=== PATIENT | male | born 1935 | race Caucasian/White ===

== ENCOUNTER → 2018-01-03 10:53 | Outpatient (CLI) | payer MEDICARE, SELFPAY ==
[2018-01-03 12:09] LABS: Amphetamine Urine VISTA NEGATIVE (<1000 ng/mL); Barbiturate Urine VISTA NEGATIVE (< 200 ng/mL); Benzodiazepine Urine VISTA NEGATIVE (< 200 ng/mL); Cocaine Urine VISTA NEGATIVE (< 300 ng/mL); Ecstacy Urine VISTA NEGATIVE (< 500 ng/mL); Methadone Urine VISTA NEGATIVE (< 300 ng/mL); PCP Urine VISTA NEGATIVE (< 25 ng/mL); THC Urine VISTA NEGATIVE (< 50 ng/mL); Vista UDS pH Range 6
== END ==
PROVIDERS: Visit Provider Anesthesiology Pain Medicine
DX: F11.20 Opioid dependence, uncomplicated (principal)
CPT/HCPCS: 80307

== ENCOUNTER → 2018-04-05 08:43 | Outpatient (CLI) | payer MEDICARE, SELFPAY ==
[2018-04-05 08:30] VITALS: BMI 24.3
--- NOTE | 2018-04-05 08:45 | RAD_ITS ---
STUDY: X-RAY - LUMBOSACRAL SPINE REASON FOR EXAM: Male, 83 years old. Pain. TECHNIQUE: 6 view(s) of the lumbosacral spine were obtained. COMPARISON: None FINDINGS: There is straightening of the normal lumbar lordosis. There is a levoscoliosis with convexity at L3. There is normal alignment of the vertebrae. There is no change in alignment with flexion or extension. There is diffuse demineralization with multi-level endplate spondylosis. There is multi-level degenerative disc disease with multi-level disc space narrowing. There is no evidence of acute fracture or loss of vertebral axial height. There is diffuse degenerative facet disease. Normal bilateral sacral ala, sacroiliac joints, and visualized sacrum. Normal visualized soft tissue structures. RAD/L/S Spine Comp/w Bending Views IMPRESSION: Degenerative changes and scoliosis of the lumbar spine. Electronically Signed: Gab Alicea DO at 22:17 EST Tel [phone], Service support ,
--- OUTSIDE RECORDS SUMMARY | 2018-05-22 07:07 | XMS RPT_ITS ---
:1935 Author Organization OHIP Care Team Providers Name Role Phone Ayla Hawley Attending Unavailable DOCTOR, OUT OF TOWN Referring Unavailable Ayla Hawley Attending Unavailable Ayla Hawley Referring Unavailable GAUDENCIO LUQUE Primary Care Unavailable Marco A Paulino Attending Unavailable Marco A Paulino Referring Unavailable GAUDENCIO LUQUE Primary Care Unavailable Marco A Paulino Attending Unavailable Marco A Paulino Referring Unavailable GAUDENCIO LUQEU Primary Care Unavailable Ayla Hawley Attending Unavailable DOCTOR, OUT OF TOWN Referring Unavailable Joana HAYWARD Attending Unavailable Joana HAYWARD Referring Unavailable BASALI AYMAN Deepti Attending Unavailable BASALI AYMAN H Referring Unavailable BASALIDREAMAN H Attending Unavailable BASALI, AYMAN H Referring Unavailable HAWLEY, AYLA Attending Unavailable HAWLEY, AYLA Referring Unavailable BASALI, AYMAN H Attending Unavailable BASALI, AYMAN H Referring Unavailable BASALI, AYMAN H Attending Unavailable HAWLEY, AYLA Referring Unavailable BASALI, AYMAN H Attending Unavailable HAWLEY, AYLA Referring Unavailable ELVINPRATEEK Attending Unavailable BASALI, AYMAN H Attending Unavailable HAWLEY, AYLA Referring Unavailable BASALI, AYMAN H Attending Unavailable HAWLEY, AYLA Referring Unavailable HAWLEY, AYLA Attending Unavailable HAWLEY, AYLA Referring Unavailable HAWLEY, AYLA Attending Unavailable HAWLEY, AYLA Referring Unavailable HAWLEY, AYLA Attending Unavailable HAWLEY, AYLA Referring Unavailable HILDA II, ONIEL B Attending Unavailable HILDA II, ONIEL B Referring Unavailable HAWLEY, AYLA Attending Unavailable HAWLEY, AYLA Referring Unavailable HAWLEY, AYLA Attending Unavailable HAWLEY, AYLA Referring Unavailable HAWLEY, AYLA Attending Unavailable HAWLEY, AYLA Referring Unavailable HILDA II, ONIEL B Attending Unavailable HILDA II, ONIEL B Referring Unavailable HEDDLESONROBLES Attending Unavailable HEDDLEROBLES REAGAN Referring Unavailable HAYWARD, R SETH Attending Unavailable HAYWARD, R SETH Referring Unavailable HAYWARD, R SETH Attending Unavailable HAYWARD, R SETH Referring Unavailable HAYWARD, R SETH Attending Unavailable HAYWARD, R SETH Referring Unavailable HILDA II, ONIEL B Attending Unavailable HILDA II, ONIEL B Referring Unavailable HILDA II, ONIEL B Attending Unavailable HILDA II, ONIEL B Referring Unavailable HILDA II, ONIEL B Attending Unavailable HILDA II, ONIEL B Referring Unavailable HEDDLESON, ROBLES D Attending Unavailable HEDDLESON, ROBLES D Referring Unavailable HILDA II, ONIEL B Attending Unavailable HILDA II, ONIEL B Referring Unavailable HEDDLESON, ROBLES Jiang Attending Unavailable HEDDLESONROBLES Referring Unavailable HAYWARD, Joana ANN Attending Unavailable HAYWARD, R SETH Referring Unavailable HEDDLESONROBLES Attending Unavailable ROBLES FIERRO Referring Unavailable HEDDLESONROBLES Attending Unavailable HEDDLESONROBLES Referring Unavailable HEDDLESONROBLES Attending Unavailable HEDDLESONROBLES D Referring Unavailable HAWLEY, AYLA Attending Unavailable HAWLEY, AYLA Referring Unavailable PROBLEMS PROBLEMS DATE TYPE CONDITION / CODE ATTENDING STATUS SOURCE Admitting Low back pain / MARLEEN AYLA Active [facility] 9 Diagnosis M54.5(ICD-10) [place] Rep[place] Admitting Follow-up / 145() VADIM, [employer] 9 Diagnosis ROBLES D [place] Rep[place] Admitting Sleep Apnea / [employer] 9 Diagnosis [id number]() [place]ES [place] Repository Admitting Chronic Obstructive iWeb TechnologiesSHAKA, [employer] 9 Diagnosis Pulmonary Disease / [place] 157() Repository Admitting Other symptoms and AYLA HAWLEY [employer] 9 Diagnosis signs involving the [place] musculoskeletal system Repository / R29.898(ICD-10) Admitting Transient alteration PRATEEK OCONNOR [employer] 8 Diagnosis of awareness / M [place] R40.4(ICD-10) Repository Unknown M54.16 - Marleen Ayla [facility] 8 Radiculopathy, lumbar Community region / Hospital M54.16(ICD-10) Repository Admitting Dorsalgia, unspecified BASALI, [facility] [employer] 8 Diagnosis / M54.9(ICD-10) H [place] Repository Admitting Pain in leg, [facility], [facility] [employer] 8 Diagnosis unspecified / H [place] M79.606(ICD-10) Repository Admitting Hypersomnia, HAYWARD R [employer] 8 Diagnosis unspecified / [place] G47.10(ICD-10) Repository Admitting Other allergic HAYWARD, R [employer] 8 Diagnosis rhinitis / [place] J30.89(ICD-10) Repository Admitting Essential (primary) HAYWARD, R [employer] 7 Diagnosis hypertension / [place] I10(ICD-10) Repository Admitting Other fatigue / [facility] 8 Diagnosis R53.83(ICD-10) [place]ES [place] Repository Admitting Other general symptoms [employer] 8 Diagnosis and signs / [place]ES [place] R68.89(ICD-10) Repository Admitting Headache / R51(ICD-10) Joana HAYWARD [employer] 8 Diagnosis [place] Repository Admitting Encounter for Joana HAYWARD [employer] 8 Diagnosis palliative care / [place] Z51.5(ICD-10) Repository Unknown F11.20 - Opioid Basali, Marco A Active [facility] 8 dependence, Community uncomplicated / Hospital F11.20(ICD-10) Repository Admitting Abdominal distension VADIM, [employer] 8 Diagnosis (gaseous) / [place] R14.0(ICD-10) Repository Admitting Shortness of breath / HILDA II, [employer] 8 Diagnosis R06.02(ICD-10) ONIEL B [place] Repository Admitting Chronic fatigue, HILDA II, [employer] 8 Diagnosis unspecified / [place] R53.82(ICD-10) Repository Admitting Abnormal HILDA II, [employer] 8 Diagnosis electrocardiogram ONI[place] B [place] (ECG) (EKG) / Repository R94.31(ICD-10) Admitting Encounter for Joana HAYWARD [employer] 8 Diagnosis immunization / [place] Z23(ICD-10) Repository Admitting Epigastric pain / Joana HAYWARD [employer] 7 Diagnosis R10.13(ICD-10) [place] Repository Admitting Occlusion and stenosis Joana HAYWARD [employer] 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 / Repository I65.23(ICD-10) Admitting Benign prostatic Joana HAYWARD [employer] 8 Diagnosis hyperplasia with lower [place] urinary tract symptoms Repository / N40.1(ICD-10) Admitting Pure hyperglyceridemia Joana HAYWARD [employer] 7 Diagnosis / E78.1(ICD-10) [place] [facility] [place] Rep[place] Admitting Pure Joana HAYWARD [employer] 7 Diagnosis hypercholesterolemia, [place] [place] unspecified / Repository E78.00(ICD-10) Admitting Cerebral aneurysm, HILDA II, Active [facility] Diagnosis nonruptured / [place] B [place] I67.1(ICD-10) Repository Admitting Occlusion and stenosis HILDA II, Active [facility] Diagnosis of unspecified ONIEL B [place] vertebral artery / Repository I65.09(ICD-10) Admitting Nonrheumatic mitral HILDA II, 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 [address] Diagnosis (valve) insufficiency ON[place] B [place] / I34.0(ICD-10) Repository Admitting Nonrheumatic aortic HILDA II, Active [facility] Diagnosis (valve) insufficiency ONI[place] B [place] / I35.1(ICD-10) Repository Admitting Hypertensive heart HILDA II, 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[place] [address] 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 B [place] failure / Repository I11.9(ICD-10) Admitting Mixed hyperlipidemia / HILDA II, Active [facility] Diagnosis E78.2(ICD-10) [place] B [place] Repository PROCEDURES PROCEDURES No Procedure Records FoundRESULTS RESULTS CERV SPINE 4 OR 5 Observed: 05/09/2018 Status: F Source: [place] VIEWS 12:20 PM [facility] REPOSITORY [facility] Imaging Services [address] [place] [address] Cerv Spine 4 or 5 Views MR#: [id number] Acct: [id number] Name: MIKE BRIAN V Rep #: [id number] : 1935 M 83 From: Skip Terrell PCP: OUT OF TOWN DOCTOR Status: REG CLI Study: Cerv Spine 4 or 5 Views Date of Exam: 05/09/18 Exam# [id number] Ordering Dr: Marco A Paulino MD STUDY: X-RAY - CERVICAL SPINE REASON FOR EXAM: Male, 83 years old. Neck pain TECHNIQUE: 5 view(s) of the cervical spine were obtained. COMPARISON: None FINDINGS: There is exaggerated lordosis of the cervical spine. There are NO fractures or malalignments. There is moderate multilevel degenerative disc change and facet arthropathy. There is NO significant bony foraminal stenosis. The prevertebral soft tissues are normal in thickness. RAD/Cerv Spine 4 or 5 Views IMPRESSION: There are chronic degenerative changes. There is NO acute fracture or malalignment. Electronically Signed: Skip Terrell MD at 0:28 EST , Service support , CC: Marco A Paulino MD; OUT OF TOWN DOCTOR Farmworker Bulbs: Signed URINE MACROSCOPIC Collected: 04/17/2018 Status: F Source: [place] 12:33 PM [place] REPOS[place]ORY TYPE CODE TESTS RESULT OUT OF REFERENCE UNITS RANGE LAB UCOL YELLOW URINE COLOR YELLOW LAB [facility] CLEAR URINE CLARITY CLEAR LAB USPG 1.010-1.025 URINE SPEC GRAVITY 1.025 LAB UPH 5.0-7.0 URINE PH 7.0 LAB AUTP NEGATIVE mg/dl URINE TOTAL PROTEIN NEGATIVE LAB UGL NEGATIVE mg/dl URINE GLUCOSE NEGATIVE LAB UKET NEGATIVE mg/dl URINE KETONE NEGATIVE LAB UBIL NEGATIVE URINE BILIRUBIN NEGATIVE LAB UHGB NEGATIVE URINE HEMOGLOBIN NEGATIVE LAB UNIT NEGATIVE URINE NITRATES NEGATIVE LAB UROB 0.2-1.0 mg/dl URINE UROBILINOGEN 0.2 LAB ULEUK NEGATIVE URINE LEUKOTEST NEGATIVE CT HEAD WITHOUT Observed: 04/17/2018 Status: F Source: [place] CONTRAST 11:34 AM [place] REPOSITORY EXAM: CT HEAD WITHOUT CONTRAST CLINICAL STATEMENT: Dizziness, nausea, difficulty with speech. History of stroke and cerebral aneurysm. COMPARISON: 09/24/2016. TECHNIQUE: CT examination of the head without IV contrast. Dose reduction techniques were achieved by using automated exposure control and/or adjustment of mA and/or kV according to patient size and/or use of iterative reconstruction technique. FINDINGS: No acute intracranial abnormality is identified. At present I do not see any evidence of hemorrhage, mass, mass effect, or midline shift. Midline structures are well-positioned. Ventricular system is symmetric and satisfactory. No posterior fossa abnormality was specifically seen. Mild atrophy is noted. The patient on prior films has had ectasia of the basilar tip. This appears unchanged. No other vascular abnormality is seen. Bone windows continue to show maxillary and ethmoid sinus disease as well as left sphenoid opacification. IMPRESSION: 1. Stable intracranial appearance without definite interval change or sign of hemorrhage or ischemia. 2. Mild age-related atrophy and white matter changes. 3. No change in the appearance of the basilar tip ectasia. CBC Collected: 04/17/2018 Status: F Source: [place] 11:05 AM [place] TYPE CODE TESTS RESULT OUT OF REFERENCE UNITS RANGE LAB WBC 3.6-11.0 /cmm WBC COUNT 10.7 LAB RBC 4.0-6.1 /cmm RBC COUNT 4.71 LAB HGB 14.0-18.0 G/DL Low HEMOGLOBIN 13.9 LAB HCT 42.0-52.0 % Low HEMATOCRIT 41.9 LAB MCV 80.0-100.0 FL MCV 88.9 LAB MCH 26.0-35.0 PG MCH 29.4 LAB MCHC 27.0-37.0 G/DL MCHC 33.1 LAB RDW 11.5-14.5 % RDW High 14.6 LAB PLTC 130.0-400.0 /cmm PLATELET COUNT 240 LAB MPV 7.4-11.0 FL MPV 7.8 LAB DTYPE % DTYPE AUTO DIFF LAB NEUT 37.0-75.0 % High NEUTROPHIL 80.1 LAB LYMP 20.0-55.0 % Low LYMPHOCYTE 11.2 LAB AOMONO 0.0-10.0 % MONOCYTE 7.5 LAB EOS 0.0-11.0 % EOSINOPHIL 0.8 LAB BASO 0.0-2.0 % BASOPHIL 0.4 LAB ANC 1.0-7.0 x10 ABSOLUTE High NEUTROPHIL COUNT 8.6 LAB ALYM X10 ABSOLUTE LYMPHOCYTE 1.20 LAB AMONO X10 ABSOLUTE MONOCYTE 0.8 LAB AEO X10 ABSOLUTE EOS 0.10 LAB ABAS X10 ABSOLUTE BAS 0.0 ISTAT TROPONIN I Collected: 04/17/2018 Status: F Source: [place] 11:05 AM [place] TYPE CODE TESTS RESULT OUT OF REFERENCE UNITS RANGE LAB ITRO 0-0.08 ng/mL ISTAT TROPONIN <0.02 I CMP FASTING Collected: 04/17/2018 Status: F Source: [place] 11:05 AM [place]POS[place] TYPE CODE TESTS RESULT OUT OF REFERENCE UNITS RANGE LAB GLF 70-100 MG/DL High GLUCOSE 123 FASTING Result Comment: NORMAL <100 mg/dL PREDIABETES 101-126 mg/dL DIABETES 126 mg/dL or higher LAB BUN 7-20 MG/DL BLOOD UREA High NITROGEN 31 LAB CRET 0.7-1.2 MG/DL CREATININE SERUM 0.9 LAB NA 137-145 MMOL/L SODIUM 141 LAB K 3.5-5.1 MMOL/L POTASSIUM 4.1 LAB CL 98-107 MMOL/L CHLORIDE 103 Result Comment: Please note: Triglyceride levels of 600mg/dL or higher may positively bias chloride results by approximately 2.1 mmol LAB CA 8.4-10.2 MG/DL CALCIUM 9.2 LAB TP 6.3-8.2 GM/DL TOTAL PROTEIN 6.8 LAB ALB 3.5-5.0 G/dl ALBUMIN 3.9 LAB TBIL 0.2-1.3 MG/DL BILIRUBIN TOTAL 0.8 LAB AST 17-59 IU/L AST 24 LAB ALKP 38-126 IU/L ALK Low PHOSPHATASE 37 LAB CO2 22-30 MMOL/L CO2 30 LAB AG 1.3-2.2 RATIO A:G RATIO 1.3 LAB ALT 21-72 IU/L ALT 28 LAB GFR ml/min/1.73 sq.m EST. GFR,Non >60 [place] LAB GFRB ml/min/1.73 sq.m EST. GFR, >60 [place] LAB GFRCOM GFR Information Average GFR for 70+ years old = 75. Result Comment: Chronic Kidney disease, GFR = <60. Kidney failure, GFR = <15. The GFR estimate is not adjusted for extreme body surface area or acute process, nor has it been validated for women or ethnic groups other than and . ORTHOPEDIC VISIT Observed: 04/16/2018 Status: F Source: [place] REPORT 8:53 PM [facility] REPOSITORY [facility] [address] [place] [address] [id number] OFFICE VISIT Date of Service: 04/05/18 MR#: [id number] Acct: [id number] Name: MIKE BRIAN V Rep #: [id number] : 1935 Provider: Ayla Hawley MD Age/Sex: 83/M Location: [facility] Status: Signed Intake Vital Signs04/05/18 Height 5 ft 10 in 04/05/18 Weight: 170 lb 04/05/18 Body Mass Index (BMI) 24.3 Intake Visit Reasons: low back pain Is patient in pain?: Yes (2) Medications albuterol sulfate HFA 90 mcg/actuation aerosol inhaler 1 puff INHALATION Q6H PRN 04/06/18 [History Confirmed 04/06/18] amoxicillin 875 mg-potassium clavulanate 125 mg tablet 1 tab PO BID 04/06/18 [History Confirmed 04/06/18] atorvastatin 10 mg tablet 10 mg PO DAILY 04/06/18 [History Confirmed 04/06/18] azelastine 137 mcg (0.1 %) nasal spray aerosol 1 spray INTRANASAL BID 04/06/18 [History Confirmed 04/06/18] diltiazem CD 180 mg capsule,extended release 24 hr 180 mg PO DAILY 04/06/18 [History Confirmed 04/06/18] fenofibrate 160 mg tablet 160 mg PO DAILY 04/06/18 [History Confirmed 04/06/18] fexofenadine 180 mg tablet 180 mg PO DAILY 04/06/18 [History Confirmed 04/06/18] finasteride 5 mg tablet 5 mg PO DAILY 04/06/18 [History Confirmed 04/06/18] fluticasone-salmeterol 230 mcg-21 mcg/actuation HFA aerosol inhaler 2 puff INHALATION BID 04/06/18 [History Confirmed 04/06/18] ipratropium bromide 42 mcg (0.06 %) nasal spray 2 spray INTRANASAL TID 04/06/18 [History Confirmed 04/06/18] melatonin 3 mg tablet 3 mg PO HS PRN 04/06/18 [History Confirmed 04/06/18] meloxicam 7.5 mg tablet 7.5 mg PO DAILY 04/06/18 [History Confirmed 04/06/18] oxycodone-acetaminophen 5 mg-325 mg tablet 1 tab PO Q6H 04/06/18 [History Confirmed 04/06/18] prednisolone 5 mg tablet 5 mg PO DAILY 04/06/18 [History Confirmed 04/06/18] ranitidine 150 mg tablet 150 mg PO DAILY 04/06/18 [History Confirmed 04/06/18] ropinirole 4 mg tablet 4 mg PO QHS 04/06/18 [History Confirmed 04/06/18] tamsulosin 0.4 mg capsule 0.4 mg PO DAILY 04/06/18 [History Confirmed 04/06/18] tiotropium bromide 2.5 mcg/actuation mist for inhalation 2 puff INHALATION DAILY 04/06/18 [History Confirmed 04/06/18] triamcinolone acetonide 55 mcg nasal spray aerosol 1 spray INTRANASAL DAILY 04/06/18 [History Confirmed 04/06/18] HPI low back pain: Details: MIKE BRIAN is a 83 year old RHD M here today for low back pain 70% from an injury many years ago when he fractured 13 ribs, his back has hurt on and off since then, and 30% left entire foot paresthesias, anterior/posterior calf pain and medial thigh pain for the past 3-4 months. He also has right posterolateral calf and dorsal foot paresthesias and medial thigh pain for 15-20 years. He has been seeing Dr. Paulino [id number] and undergoing injections, to include L2-3 ONEL in 11/2017, right RFA lumbar spine [id number], left RFA lumbar spine 09/09/2017 and L5-S1 ONEL 07/2017 and 03/2017. He did do a recent block that has been very helpful. He is in PT currently but his pain was so severe he got nauseous. His pain is worse with anything and improved with percocet. He has been on percocet bid for years. He denies aqua therapy. He denies bowel or bladder issues or difficulty with hand dexterity. He uses a cane for the past 3 weeks. He denies falls. 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 He has restless leg syndrome on requip and a h/o stroke and brain aneurysm. He is hard of hearing. He complains of lightheadedness. He denies blood thinning medication. He is retired. He denies nicotine use. Ortho Exam Spine Neuro: Yes Straight Leg Raise (negative bilaterally), Rosales's (none bilaterally), Babinski (equivocal bilaterally) and Light Touch Sensation (decreased in B med/lat calf, feet) General: alert, oriented x3 Skin: Yes dysraphism (none) Capillary Refill <2sec: Yes Palpable Pulses: 2+ dp/pt pulses bilaterally Gait: normal gait, other (heel and toe walk intact.) Motor: strength 5/5 throughout Sensory Exam: other (decreased in medial/lateral calf and entire feet) DTR's: Rt Triceps: 2+, Lt Triceps: 2+, Rt Biceps: 2+, Lt Biceps: 2+, Rt Brachioradialis: 2+, Lt Brachioradialis: 2+, Rt Patellar: 2+, Lt Patellar: 2+, Rt Ankle: 2+, Lt Ankle: 2+ Coordination: tandem gait normal, Romberg test normal Details: decreased hip range of motion bilaterally SPINE TESTING CERVICAL THORACIC LUMBAR Musculoskeletal General: Yes normal gait Cervical Spine: cervical ROM normal Thoracic/Lumbar Spine: pain with thoraco-lumbar ROM (worse with lumbar extension than flexion), thoraco-lumbar ROM limited, paraspinal tenderness Sacroiliac joints: bilateral (tenderness bilaterally) Strength 0=absent - 5=normal Deltoid R (C5): 5, Deltoid L (C5): 5, R Bicep (C5-6): 5, L Bicep (C5-6): 5, R Wrist Extensor (C6): 5, L Wrist Extensor (C6): 5, R Tricep (C7): 5, L Tricep (C7): 5, R Finger Flexors (C8): 5, L Finger Flexors (C8): 5, R First Dorsal Interossei (C8): 5, L First Dorsal Interossei (C8): 5, R Hip Flexor (L1-3): 5, L Hip Flexor (L1-3): 5, R Quadriceps (L2-4): 5, L Quadriceps (L2-4): 5, R Anterior Tibialis (L4-5): 5, L Anterior Tibialis (L4- 5): 5, R EHL (L5): 3, L EHL (L5): 5, R Hamstrings (L5-S1): 5, L Hamstrings (L5-S1): 5, GS (S1): 5, L GS (S1): 5, R Peroneals (S1): 4, L Peroneals (S1): 5 Assessment AND Plan Problems 1. Chronic bilateral low back pain without sciatica M54.5; G89.29 2. Bilateral leg pain M79.604; M79.605 Plan Imaging: XR lumbar spine 04/05/2018 reveals diffuse spondylosis with degenerative scoliosis MRI L spine - no imaging or report available for review I/R/P: 1. back pain 2. bilateral leg pain and paresthesias 3. COPD 4. restless leg syndrome 5. h/o stroke and brain aneurysm 6. hard of hearing 7. SI joint pain Mr. Brian presents with chronic back pain and bilateral leg pain/paresthesias. Would recommend patient provide a copy of his CD MRI lumbar spine for review. In the interim, recommend aqua therapy and tens unit. Follow up after he is able to obtain his MRI for review. Plan of care discussed. All questions answered. He is in understanding. Orders Orders: Coding Level of Care Code Off vis,new,level 4 Diagnoses Chronic bilateral low back pain without sciatica M54.5; G89.29 Back pain location: low back pain Chronicity: chronic Back pain laterality: bilateral Sciatica presence: without sciatica Bilateral leg pain M79.604; M79.605 04/16/182052 <Electronically signed by Ayla Hawley MD> Date Ayla Hawley MD Cosigner Signature: Date (if applicable) CC: Marco A Paulino MD L/S SPINE COMP/W Observed: 04/05/2018 Status: F Source: [place] BENDING VIEWS 8:45 AM [facility] REPOSITORY [facility] Imaging Services [address] [place] [address] L/S Spine Comp/w Bending Views MR#: [id number] Acct: [id number] Name: MIKE BRIAN V Rep #: [id number] : 1935 M 83 From: Gab Alicea DO PCP: OUT OF TOWN DOCTOR Status: REG CLI Study: L/S Spine Comp/w Bending Views Date of Exam: 04/05/18 Exam# [id number] Ordering Dr: Ayla Hawley MD STUDY: X-RAY - LUMBOSACRAL SPINE REASON FOR EXAM: Male, 83 years old. Pain. TECHNIQUE: 6 view(s) of the lumbosacral spine were obtained. COMPARISON: None FINDINGS: There is straightening of the normal lumbar lordosis. There is a levoscoliosis with convexity at L3. There is normal alignment of the vertebrae. There is no change in alignment with flexion or extension. There is diffuse demineralization with multi-level endplate spondylosis. There is multi-level degenerative disc disease with multi- level disc space narrowing. There is no evidence of acute fracture or loss of vertebral axial height. There is diffuse degenerative facet disease. Normal bilateral sacral ala, sacroiliac joints, and visualized sacrum. Normal visualized soft tissue structures. RAD/L/S Spine Comp/w Bending Views IMPRESSION: Degenerative changes and scoliosis of the lumbar spine. Electronically Signed: Gab Alicea DO at 22:17 EST Tel [phone], Service support , CC: Ayla Hawley MD; OUT OF TOWN DOCTOR Farmworker Bulbs: Signed MRI SPINE LUMBAR Observed: 03/15/2018 Status: F Source: [place] WITHOUT CONTRAST 8:56 AM [facility] ([place]) REPOSITORY MRI SPINE LUMBAR WITHOUT CONTRAST CLINICAL STATEMENT: Chronic low back pain, bilateral lower extremity pain and numbness, more severe on the right. TECHNIQUE: Multisequence, multiplanar MRI studies of the lumbar spine are compared to previous dated March 16, 2017. FINDINGS: The lumbar bodies are again arranged with a slight levoscoliotic curvature. There is advanced degenerative narrowing of the lumbar disc interspaces from L2 to S1, most severe at L2-L3, L3-L4, and L4-L5 levels. I do see mild degrees of retrolisthesis L2 on L3, L3 on L4, and to a very mild degree L4 on L5 all similar to previous examination. There is also bulging disc contour at T12-L1, L1-L2, and the lumbosacral levels also similar to previous studies. Tip of the conus medullaris extends to the L1-L2 disc interspace level and appears to be normal. Axial images obtained correlate as follows: Mild disc bulging T12-L1 and L1-L2 without critical central canal or recess stenosis. At L2-L3, there is mild disc bulging, with mild central canal and recess narrowing. As a result of retrolisthesis and disc bulging, there appears to be mild to moderate foraminal narrowing on the right. At L3-L4, there is retrolisthesis, disc bulging with mild central canal and recess narrowing. I am not identifying critical foraminal stenosis on the right or the left. At L4-L5, there is disc bulging and retrolisthesis, with mild central canal and recess narrowing. At this level there is a greater degree of foraminal stenosis present, with moderate to severe changes on the left and mild changes on the right. At the lumbosacral level, I see disc bulging without critical central canal, recess, or foraminal stenosis. Hypertrophic facet arthrosis is present. Retroperitoneal and paraspinal soft tissues appeared satisfactory other than multifocal renal cysts. IMPRESSION: Redemonstration of extensive degenerative changes of the lumbar intervertebral discs, endplates, and facet joints, with a levoscoliotic curvature redemonstrated. Again there are multilevel retrolisthesis instabilities L2 to L5. Mild degrees of central canal stenosis and recess narrowing L2 to L5, perhaps most prominent at L4-L5. Mild multilevel foraminal stenosis is present at all levels L2-L3, L3-L4 ,and on the right at L4-L5. Moderate to severe foraminal narrowing due to asymmetric disc contour and endplate spurring is noted on the left at L4-L5. Multifocal bilateral renal cysts. TSH,REFLEX FREE T4 Collected: 01/13/2018 Status: F Source: [place] 10:31 AM [facility] ([place]) REPOSITORY TYPE CODE TESTS RESULT OUT OF RANGE REFERENCE UNITS LAB RTSH 0.46-4.68 uIU/ML 0.832 TSH,REFLEX FREE T4 URINE DRUG SCREEN Collected: 01/03/2018 Status: F Source: [place] ([place]) 10:58 AM [facility] REPOSITORY Order Comment: List of Drugs Taken or Suspected? UNK TYPE CODE TESTS RESULT OUT OF RANGE REFERENCE UNITS LAB L505.0075 TO BE Normal CONFIRMED Result Comment: CONFIRMATORY TESTING FOR ALL POSITIVE URINE DRUG SCREEN RESULTS WILL ONLY BE SENT OUT UPON PHYSICIAN ORDER. VISTA Urine Drug Screen methods provide only preliminary analytical test results. A more specific alternate chemical method must be used in order to obtain a confirmed analytical result. Gas chromatography/mass spectrometery (GC/MS) is the preferred confirmatory method. Clinical consideration and professional judgement should be applied to any drug of abuse test result, particularly when preliminary positive results are used. URINE TCA TESTING MUST BE ORDERED SEPARATELY. USE TEST MNEMONIC: [facility] LAB L505.5005 VISTA UDS PH 6 Normal LAB L505.5015 <1000 ng/mL AMPHETAMINES Normal NEGATIVE LAB L505.5025 < 200 ng/mL BARBITIURATES Normal NEGATIVE LAB L505.5035 < 200 ng/mL BENZODIAZIPINE Normal NEGATIVE LAB L505.5045 < 300 ng/mL COCAINE Normal NEGATIVE LAB L505.5055 < 500 ng/mL ECSTACY Normal NEGATIVE LAB L505.5065 < 300 ng/mL METHADONE Normal NEGATIVE LAB L505.5075 < 300 High ng/mL OPIATES POSITIVE LAB L505.5085 < 25 ng/mL PCP Normal NEGATIVE LAB L505.5095 < 50 ng/mL THC Normal NEGATIVE Performed By: #### L505.5000 #### [facility] [address] [place], [address] MISCELLANEOUS LAB Collected: 01/03/2018 Status: F Source: [place] PROCEDURE 10:58 AM [facility] REPOSITORY Order Comment: Test(s) Ordered: URINE TOXICOLOGY [id number] RUN LOWEST TEST TYPE CODE TESTS RESULT OUT OF RANGE REFERENCE UNITS LAB L801.1541 Normal [facility] [place] Result Comment: [id number] 6+OXYCODONE-BUND (ng/mL) DRUG RESULT SCREEN CUTOFF ____ Amphetamines,Urine Negative ng/mL 1000 Amphetamine test includes Amphetamine and Methamphetamine. Barbiturates Negative ng/mL 200 Benzodiazepines Negative ng/mL 200 Cannabinoid Negative ng/mL 20 Cocaine (Metab) Negative ng/mL 300 Opiates Negative ng/mL 300 Opiates test includes Codeine, Morphine, Hydromorphone, Hydrocodone. Oxycodone/Oxymorphone,Urine Positive ng/mL 300 Test includes Oxydodone and Oxymorphone. Oxycodone Positive Oxycodone GC/MS 604 ng/mL 300 Oxymorphone Positive Oxymorphone GC/MS 1450 ng/mL 300 TESTING PERFORMED AT [facility]. ORIGINAL REPORT ON FILE IN LAB CONTAINS ADDITIONAL TEST SITE INFORMATION. Performed By: #### L801.1541 #### [facility] [address] [place], [address] US ABDOMEN COMPLETE Observed: 12/29/2017 Status: F Source: [place] 8:38 AM SYSTEM ([place]) REPOSITORY COMPLETE ABDOMINAL ULTRASOUND DATE: 12/29/2017. INDICATION: Abdominal distention. FINDINGS: Phelan-scale and color imaging of the abdomen is performed and compared to CT of the abdomen and pelvis from 06/24/2016. Visualized portions of the pancreatic head and body are normal in echogenicity. The liver is normal in echogenicity without suspicious focal lesion. The common duct proximally is normal in caliber measuring 1 to 2 mm in diameter. The more mid to distal common duct is not well-visualized due to artifact from adjacent intestinal air. Gallbladder is normal in size. No obvious echogenic shadowing gallstone, gallbladder wall abnormality, or sonographic Carr sign. The right kidney measures 11.3 x 7.4 x 7.3 cm and the left kidney measures 12.0 x 6.0 x 6.0 cm. Cortical thickness of both kidneys measures 2.0 cm. There is a partially exophytic cyst involving the lower pole of the right kidney measuring 3.6 x 2.8 x 2.8 cm. There is an additional smaller cyst involving the lower pole of the right kidney which is noted. Within the left kidney there is a parapelvic cyst within the interpolar region which measures 2.0 x 1.3 x 1.6 cm. There is no hydronephrosis. The abdominal aorta is nonaneurysmal measuring up to 2.0 cm in the proximal, mid, and distal segments. There is no abdominal ascites. The spleen is normal in size measuring up to 10.9 cm craniocaudally. A few echogenic calcified benign granulomas within the spleen are noted. IMPRESSION: 1. No ultrasound evidence of cholelithiasis or cholecystitis. 2. Normal liver echogenicity. 3. No biliary ductal dilatation, the mid to distal common duct is not well visualized due to artifact from adjacent intestinal air. 4. Bilateral renal cysts. 5. No ascites. CBC Collected: 08/06/2017 Status: F Source: [place] 4:32 AM SYSTEM ([place]) REPOSITORY TYPE CODE TESTS RESULT OUT OF REFERENCE UNITS RANGE LAB WBC 3.6-11.0 /cmm WBC COUNT 7.8 LAB RBC 4.0-6.1 /cmm RBC COUNT 4.13 LAB HGB 14.0-18.0 G/DL Low HEMOGLOBIN 12.8 LAB HCT 42.0-52.0 % Low HEMATOCRIT 36.7 LAB MCV 80.0-100.0 FL MCV 88.9 LAB MCH 26.0-35.0 PG MCH 30.9 LAB MCHC 27.0-37.0 G/DL MCHC 34.8 LAB RDW 11.5-14.5 % RDW 14.5 LAB PLTC 130.0-400.0 /cmm PLATELET COUNT 259 LAB MPV 7.4-11.0 FL MPV 7.5 LAB DTYPE % DTYPE AUTO DIFF LAB NEUT 37.0-75.0 % NEUTROPHIL 71.5 LAB LYMP 20.0-55.0 % Low LYMPHOCYTE 17.4 LAB AOMONO 0.0-10.0 % MONOCYTE 8.9 LAB EOS 0.0-11.0 % EOSINOPHIL 1.3 LAB BASO 0.0-2.0 % BASOPHIL 0.9 LAB ANC 1.0-7.0 x10 ABSOLUTE NEUTROPHIL COUNT 5.6 LAB ALYM X10 ABSOLUTE LYMPHOCYTE 1.40 LAB AMONO X10 ABSOLUTE MONOCYTE 0.7 LAB AEO X10 ABSOLUTE EOS 0.10 LAB ABAS X10 ABSOLUTE BAS 0.1 Performed By: #### ACBC #### Testing performed at [address] [address] LIPID PROFILE Collected: 08/06/2017 Status: F Source: [place] 4:32 AM SYSTEM ([place]) REPOSITORY TYPE CODE TESTS RESULT OUT OF REFERENCE UNITS RANGE LAB CHOLL 120-200 MG/DL CHOLESTEROL Low 99 LAB TRIGL 0-150 MG/DL TRIGLYCERIDES 55 LAB HDL 26-63 MG/DL HDL 50 LAB LDL MG/DL LDL 38 LAB VLDL 5.0-25 MG/DL VLDL 11 LAB CHRAT RATIO CHOL/HDL RATIO 1.98 Result Comment: RISK TOTAL/HDL RATIO MEN WOMEN 1/2 AVERAGE 3.43 3.27 AVERAGE 4.97 4.44 2X AVERAGE 9.55 7.05 3X AVERAGE 23.99 11.04 Performed By: #### ACBC #### Testing performed at [address] [address] ALLERGIES ALLERGIES No Allergies Records FoundENCOUNTERS ENCOUNTERS ADMIT/DISCHARGE ACCOUNT NUMBER ADMITTING ENCOUNTER LOCATION SOURCE CLASS 05/17/2018/05/17/19 [id number] Ambulatory BMSBuilding: [address] Repository 05/17/2018 [id number] Ambulatory Buildin [employer] ([place]) Repository 05/12/2018 [id number] Ambulatory [facility]in [facility] ([place] Repository 05/12/2018 [id number] Ambulatory [facility] ([place]) Repository 05/10/2018 [id number] Ambulatory Buildin [employer] ([place]) Repository 05/09/2018 [id number] Ambulatory [facility] ding:RAD Repository 05/05/2018 [id number] Ambulatory [facility] ([place] Repository 05/03/2018 [id number] Ambulatory Buildin [facility] ([place] Repository 05/03/2018 [id number] Ambulatory Buildin [employer] ([place]) Repository 04/27/2018 [id number] Ambulatory Buildin [employer] ([place] Repository 04/25/2018 [id number] Ambulatory Buildin [employer] ([place] Repository 04/22/2018 [id number] Ambulatory Build[facility] ([place] Rep[place] 04/21/2018 [id number] Ambulatory [facility] [place] 04/17/2018/04/17/20 [id number] Emergency Buildin [facility] 18 EDRoom: System ([place]) N061Gzz: Repository E002 04/13/2018 [id number] Ambulatory Buildin [facility] ([place] Repository 04/11/2018 [id number] Ambulatory [facility] ([place] Repository 04/07/2018 [id number] Ambulatory Buildin [facility] ([place]) Repository 04/05/2018 [id number] Ambulatory [facility] ding:HPRAD Repository 04/05/2018/04/05/20 [id number] Ambulatory BMSBuilding: [address] Repository 04/05/2018 [id number] Ambulatory [facility]in [facility] ([place] Repository 04/04/2018 [id number] Ambulatory [facility] [place] Rep[place] 04/01/2018 [id number] Ambulatory [facility]in [facility] [place] Rep[place] 03/28/2018 [id number] Ambulatory [facility] [place] Rep[place] 03/15/2018 [id number] Ambulatory [facility] [place] Rep[place] 03/07/2018 [id number] Ambulatory [facility] [place] Rep[place] 03/04/2018 [id number] Ambulatory [facility] [place] Rep[place] 01/13/2018 [id number] Ambulatory [facility] ([place] Repository 01/13/2018 [id number] Ambulatory Buildin [facility] ([place]) Repository 01/05/2018 [id number] Ambulatory Build[facility] ([place] Repository 01/03/2018 [id number] Ambulatory [facility] ding:LAB Repository 12/29/2017 [id number] Ambulatory [facility] ([place]) Repository 12/14/2017 [id number] Ambulatory Buildin [facility] ([place]) Repository 12/08/2017 [id number] Ambulatory Buildin [facility] ([place] Repository 12/03/2017 [id number] Ambulatory Buildin [facility] ([place] Repository 11/30/2017 [id number] Ambulatory Buildin [facility] ([place] Repository 11/29/2017 [id number] Ambulatory Buildin [facility] ([place] Rep[place] 11/18/2017 [id number] Ambulatory Buildin [facility] ([place] Repository 08/19/2017 [id number] Ambulatory Buildin [facility] ([place] Repository 08/06/2017 [id number] Ambulatory Buildin [facility] ([place] Rep[place] 06/10/2017 [id number] Ambulatory [facility] [place] 05/25/2017 [id number] Ambulatory [facility] ([place] Repository PAYERS PAYERS ENCOUNTER GUARANTOR PAYER SUBSCRIBER SOURCE 05/17/2018 MIKE V Primary MIKE V Edith [id number] Insurance:MEDICARE WILLIAMSONDOB: [facility] [place] [facility] [id number] Number: Repository [id number]: [phone] [id number] [phone] (HP) Date:2018-04-05 05/17/2018 Secondary MIKE V Edith [facility] WILLIAMSONDOB: [facility] [id number] Hospital Number: Repository [id number] Date:7132-79-84[address] [address] [address]TW: 05/17/2018 Tertiary NOT GIVENUNK Edith Insurance:SELF PAY [facility] Number: Effective Repository Date:2018-05-17 05/09/2018 MIEK V Primary Insurance:[facility] MIKE V Edith [id number] [facility] WILLIAMSONDOB: [facility] Number: [id number], [place] [id number] Repository [address]Phd: 419) Date:8605-19-03PB [phone] (HP) [address] [place] [phone]: 05/09/2018 Secondary NOT GIVENUNK Edith Insurance:SELF PAY [facility] Number: Effective Repository Date:2018-05-09 04/05/2018 MIKE V Primary Insurance:C MIKE V [place] [id number] [facility] [employer] WILLIAMSONDOB: Community [place] Number: [id number], [place] [id number] Repository [address]Epe: ([phone]) Date:5345-29-63NM [phone] (HP) [address] [place] [phone]: 04/05/2018 Secondary NOT GIVENUNK [place] Insurance:SELF PAY [facility] Number: Effective Repository Date:2018-04-05 04/05/2018 MIKE V Primary Insurance:[facility] MIKE V Edith [id number] [facility] WILLIAMSONDOB: Community [place] Number: [id number], [place] [id number] Repository [address]Nro: ([phone]) Date:1423-26-46AA [phone] (HP) [address] [place] [phone]: 04/05/2018 Secondary NOT GIVENUNK [place] Insurance:SELF PAY [facility] Number: Effective Repository Date:2018-04-05 01/03/2018 MIKE V Primary Insurance:[facility] MIKE V Edith [id number] [facility] WILLIAMSONDOB: Community [place] Number: [id number], [place] [id number] Repository [address]Kze: ([phone]) Date:1688-69-81JN [phone] (HP) [address] [place] [phone]: 01/03/2018 Secondary NOT GIVENUNK Edith Insurance:SELF PAY [facility] Number: Effective Repository Date:2018-01-03
== END ==
PROVIDERS: Referring Provider Orthopaedic Surgery; Visit Provider Orthopaedic Surgery
DX: M54.16 Radiculopathy, lumbar region (principal)
CPT/HCPCS: 72114

== ENCOUNTER → 2018-05-09 12:15 | Outpatient (CLI) | payer MEDICARE, SELFPAY ==
[2018-04-05 08:30] VITALS: BMI 24.3
--- NOTE | 2018-05-09 12:35 | RAD_ITS ---
STUDY: X-RAY - CERVICAL SPINE REASON FOR EXAM: Male, 83 years old. Neck pain TECHNIQUE: 5 view(s) of the cervical spine were obtained. COMPARISON: None FINDINGS: There is exaggerated lordosis of the cervical spine. There are NO fractures or malalignments. There is moderate multilevel degenerative disc change and facet arthropathy. There is NO significant bony foraminal stenosis. The prevertebral soft tissues are normal in thickness. RAD/Cerv Spine 4 or 5 Views IMPRESSION: There are chronic degenerative changes. There is NO acute fracture or malalignment. Electronically Signed: Skip Terrell MD at 0:28 EST , Service support ,
== END ==
PROVIDERS: Referring Provider Anesthesiology Pain Medicine; Visit Provider Anesthesiology Pain Medicine
DX: M54.2 Cervicalgia (principal)
CPT/HCPCS: 72050

== ENCOUNTER → 2018-08-29 | Outpatient (CLI) | payer MEDICARE, SELFPAY ==
[2018-05-17 14:37] VITALS: BMI 24.3
--- NOTE | 2018-08-29 11:26 | RAD_ITS ---
STUDY: X-RAY - LUMBAR SPINE REASON FOR EXAM: Male, 83 years old. Pain TECHNIQUE: 3 view(s) of the lumbar spine were obtained. COMPARISON: April 05, 2018 lumbar spine x-ray FINDINGS: There is straightening of the normal lumbar lordosis. There is mild levoscoliosis. There is stable slight retrolisthesis of the level L3-L4. There is multilevel endplate spondylosis of the lumbar vertebrae. There is multi-level degenerative disc disease with multi-level disc space narrowing. There is moderate stool in the colon. RAD/Lumbar Spine 2 or 3 Views IMPRESSION: Degenerative changes of the spine, as detailed above. Electronically Signed: Nette Kirby MD at 1:02 EDT Tel , Service support ,
--- NOTE | 2018-08-29 11:35 | RAD_ITS ---
STUDY: X-RAY - THORACIC SPINE REASON FOR EXAM: Male, 83 years old. Pain TECHNIQUE: 4 view(s) of the thoracic spine were obtained. COMPARISON: None. FINDINGS: Normal kyphosis of the thoracic spine. Is mild dextroscoliosis of the thoracic spine. There is demineralization of the thoracic spine with endplate spondylosis. There is multilevel disc space narrowing of the thoracic spine. The soft tissue structures are unremarkable. RAD/Thoracic Spine 3 Views IMPRESSION: Multilevel degenerative change. No visualized acute loss of height or alignment. Electronically Signed: Nette Kirby MD at 1:04 EDT Tel , Service support ,
== END | disposition home or self-care (01) ==
LOC: RAD 11:23
PROVIDERS: Referring Provider Anesthesiology Pain Medicine; Visit Provider Anesthesiology Pain Medicine
DX: M54.9 Dorsalgia, unspecified (principal)
CPT/HCPCS: 72072; 72100